=== PATIENT | male | born 1965 | race Asian ===

== ENCOUNTER → 2019-02-13 | Outpatient (CLI) | payer BC | END | disposition home or self-care (01) | LOC: RADPV 09:43 | PROVIDERS: ATTEND Internal Medicine | DX: J98.4 Other disorders of lung (principal) ==

== ENCOUNTER → 2019-02-20 | Outpatient (CLI) | payer BC | END | disposition home or self-care (01) | LOC: RADPV 10:01 | PROVIDERS: ATTEND Internal Medicine | DX: J18.9 Pneumonia, unspecified organism (principal) ==

== ENCOUNTER → 2019-03-09 | Outpatient (CLI) | payer BC ==
[~2019-03-09] MED LIST: IOVERSOL 350 MG/ML 100 ML VIAL ONE; SODIUM CHLORIDE 0.9% 100 ML ONE
== END | disposition home or self-care (01) ==
LOC: RADMN 10:06
PROVIDERS: ATTEND Internal Medicine
DX: R91.8 Other nonspecific abnormal finding of lung field (principal); K80.20 Calculus of gallbladder without cholecystitis without obstruction; I70.0 Atherosclerosis of aorta
CPT/HCPCS: 71260; J7050; Q9967